=== PATIENT | male | born 1990 | race African-American/Black ===

== ENCOUNTER 2019-03-02 09:56 | Emergency (ER) | payer OTHER ==
[2019-03-02 11:01] LABS: Bilirubin Negative (Negative); Blood, Urine Negative (Negative); Clarity Clear (Clear); Glucose, Urine (Dipstick) Negative (Negative); Leukocyte Negative (Negative); Nitrite Negative (Negative); Protein, Urine (Dipstick) Negative (Neg-Trace); Urobilinogen 0.2 mg/dL (Less than 2)
== END 2019-03-02 11:43 | disposition home or self-care (01) ==
LOC: SCSER 09:56
DX: N50.811 Right testicular pain (principal); N50.812 Left testicular pain; G43.909 Migraine, unspecified, not intractable, without status migrainosus
CPT/HCPCS: 81003; 99281